=== PATIENT | female | born 1980 | race Two or more races ===

== ENCOUNTER 2024-12-02 16:27 | Emergency (ER) | payer MEDICAID, SELFPAY ==
[2024-12-02 16:30] VITALS: BMI 25.8
[2024-12-02 16:52] VITALS: BP 106/71; PULSE 58; RESP 16; TEMP 36.7; O2SAT 99
--- NOTE | 2024-12-02 17:06 | PD.EDRME ---
Rapid Medical Screening Exam [facility] Arrival date/time: 12/02/24 16:27 44-year-old female presents with acute onset of abdominal pain nausea vomiting and chills Chief Complaint: Abdominal Pain Vital signs: Vital Signs Temperature 98.1 F 12/02/24 16:52 Pulse Rate 58 L 12/02/24 16:52 Respiratory Rate 16 12/02/24 16:52 Blood Pressure 106/71 12/02/24 16:52 Pulse Oximetry (%) 99 12/02/24 16:52 Oxygen Delivery Method Room Air 12/02/24 16:52
[2024-12-02] MEDS: ACETAMINOPHEN 500 MG TABLET 1000 MG PO (17:21)
[2024-12-02] MEDS: ONDANSETRON ODT 4 MG TABRAP PO (17:21)
[2024-12-02 17:24] LABS: Basophils # (Auto) 0.1 Thou/mm3 (0.0-0.2); Basophils % (Auto) 0 % (0-2.5); Eosinophils # (Auto) 0.3 Thou/mm3 (0.0-0.5); Eosinophils % (Auto) 3 % (0-10); Hemoglobin 12.7 g/dL (12.0-16.0); Immature Granulocytes % (Auto) 0 % (0-0); Immature Granulocytes Auto 0.02 Thou/mm3 (0.00-0.00); Lymphocytes # (Auto) 1.5 Thou/mm3 (1.0-4.8); Lymphocytes % (Auto) 13 % (10-50); Mean Corpuscular HGB Conc 34.3 g/dl (31.0-37.0); Mean Corpuscular Hemoglobin 30.1 pg (25.0-35.0); Mean Corpuscular Volume 88 fL (80-100); Monocytes # (Auto) 0.5 Thou/mm3 (0.0-0.8); Monocytes % (Auto) 5 % (0-12); Neutrophils # (Auto) 9.3 Thou/mm3 (1.8-7.7); Neutrophils % (Auto) 79 % (37-80); Nucleated Red Blood Cell % 0 /100 WBC (0); Platelet Count 288 Thou/mm3 (140-440); RDW Standard Deviation 45.1 fL (36.4-46.3); Red Blood Count 4.22 Miln/mm3 (4.00-5.20); White Blood Count 11.8 Thou/mm3 (3.6-11.0)
[2024-12-02 17:43] LABS: Alanine Aminotransferase 25 U/L (10-49); Albumin, Serum 4.1 gm/dL (3.5-5.0); Albumin/Globulin Ratio 1.6 (1.2-2.2); Alkaline Phosphatase 73 U/L (46-116); Anion Gap 5 (7-16); Aspartate Amino Transferase 22 U/L (0-34); BUN/Creatinine Ratio 11 Ratio (12-20); Bilirubin,Total 0.4 mg/dL (0.3-1.2); Blood Urea Nitrogen 10 mg/dL (9-23); Calcium 9.2 mg/dL (8.3-10.6); Calcium (Corrected) 9.2 mg/dL (8.5-10.1); Carbon Dioxide 29.7 mMol/L (20.0-31.0); Chloride 108 mMol/L (98-107); Creatinine (Component) 0.9 mg/dL (0.6-1.3); Estimated Creatinine Clearance 80.5 mL/min (>60); Globulin 2.6 gm/dL (2.3-3.5); Glucose 76 mg/dL (74-106); Lipase 31 U/L (12-53); Osmolality,Calculated 282 (275-295); Potassium 3.5 mMol/L (3.4-5.1); Sodium 143 mMol/L (136-145); Total Protein 6.7 gm/dL (5.7-8.2); eGFR > 60 See Note
[2024-12-02 18:25] LABS: Collection Type, Urine Clean Catch
[2024-12-02 18:30] LABS: HCG Qualitative,Urine Negative
--- NOTE | 2024-12-02 18:30 | EDNOTE_ITS ---
ED General RME/HPI General Chief complaint: Abdominal Pain Stated complaint: N/V/D, SWEATS, BLACKED OUT, ABD PAIN X 1 HR Time Seen by Provider: 12/02/24 18:13 Arrival date/time: 12/02/24 16:27 CC: Nausea vomit diarrhea HPI onset abruptly approximate 30 minutes [place] food [place] another town, the patient then became lightheaded and diaphoretic. Currently the patient admits to having 1 round of very watery diarrhea, nausea has since resolved no actual vomiting. Patient is resting comfortably nontoxic- appearing complaining of bloated and tender abdomen. RME / HPI RME / HPI narrative: 12/02/24 16:27 44-year-old female presents with acute onset of abdominal pain nausea vomiting and chills Related Data Home Medications ?Medication ?Instructions ?Recorded ?Confirmed albuterol sulfate 90 mcg/actuation 2 puff inhalation Q ID PRN Wheezing 10/05/18 10/05/18 aerosol inhaler [id number] fumarate 18 1 tab-cap PO QAM 10/05/18 mg-FA 600 mcg-vit K 40 mcg capsule (Multi For Her) norethindrone 1 mg-ethinyl 1 tab PO QDAY 10/05/1809/07 estradiol 20 mcg (21)-iron 75 mg (7) tablet (Microgestin FE 09/24 (28)) Previous Rx's ?Medication ?Instructions ?Recorded dicyclomine 20 mg tablet 20 mg PO BID #10 tabs ondansetron 4 mg disintegrating 4 mg PO Q8H #10 tabs 0 12/02/24 tablet Allergies Allergy/AdvReac Type Severity Reaction Status Date / Time corn Allergy Gastrointestinal Verified 12/02/24 16:33 Upset egg Allergy Gastrointestinal Verified 12/02/24 16:33 Upset latex Allergy Hives Verified 12/02/24 16:33 peanut Allergy Gastrointestinal Verified 12/02/24 16:33 Upset shrimp Allergy Gastrointestinal Verified 12/02/24 16:33 Upset soy Allergy Gastrointestinal Verified 12/02/24 16:33 Upset wheat Allergy Gastrointestinal Verified 12/02/24 16:33 Upset cucumber AdvReac Gastrointestinal Verified 12/02/24 16:33 Upset hops AdvReac Gastrointestinal Verified 12/02/24 16:33 Upset Review of Systems Review of Systems Narrative Review of Systems: GEN: No fever, no chills, no weight loss EYES: No discharge, no visual changes, no pain HEENT: No ear pain, no congestion, no sore throat PULM: No shortness of breath, no cough, no congestion CV: No chest pain, no dyspnea on exertion, no palpitations GI: + nausea, + vomiting, + diarrhea, no pain, no constipation : No frequency, no urgency, no dysuria MUSC/SKEL: No joint pain, no back pain SKIN: No rash PSYCH: No hallucinations, no depression HEME/LYMPH: No easy bleeding or bruising tendencies NEURO: No weakness, no headache Past Medical History Past Medical History NEUROLOGIC: Negative Seizures CARDIAC: Negative Congestive Heart Failure RESPIRATORY: Negative Chronic Obstructive Pulmonary Disease (COPD) GENITOURINARY: Negative Renal Disease ENDOCRINE: Negative Diabetes Mellitus Type 1 or Diabetes Mellitus Type 2 OTHER HISTORY: Negative Blood Transfusions or Anesthesia Reactions Surgical History SURGICAL: Positive Section (x2) Social History SMOKING STATUS: Never smoker ED Exam Narrative Physical exam: [General: Obese not in any acute distress Head normocephalic HEENT: Within acceptable limits Neck is supple nontender Chest equal chest rise nontender to palpation Respiratory: Clear to auscultation no wheezes crackles or rubs CV: Rate rhythm is regular no murmurs rubs or clicks Abdomen is mildly distended, periumbilical tenderness with palpation no reflexive guarding rebound tenderness no upper abdominal tenderness. Back: No CVA tenderness no spinous process tenderness from cervical spine thoracic and lumbar spine Skin: Intact no petechiae rash induration ulceration or crepitus Extremities: Moving all extremity against resistance cap refill less than 2 seconds neurosensory intact Neuro: Awake alert oriented x3 Glascow coma 15 no focal deficits] Course Course Course Narrative: Reexamination of the patient at 1907, the patient is resting comfortably states she has some mild abdominal discomfort but no outright pain and no nausea. Laboratory results are showing no acute finding requires emergent or immediate intervention. This time patient be discharged home with ondansetron and is advised if there is a worsening of symptoms return the emergency room medially for further evaluation. Quality Measures none Orders Category Date Time Status Bedside Influenza A&B Antigen Test NOW Care 12/02/24 17:03 Completed CBC Stat Lab 12/02/24 17:15 Completed Comprehensive Metabolic Panel Stat Lab 12/02/24 17:15 Completed HCG Qualitative,Urine Stat Lab 12/02/24 18:15 Completed Lipase Stat Lab 12/02/24 17:15 Completed UA, C/S IF [Urinalysis, C/S if Indicated] Stat Lab 12/02/24 18:15 Completed Acetaminophen Tab [Tylenol ES Tab] Med 12/02/24 17:03 Discontinued 1,000 mg PO X1 ONE Ondansetron Odt [Zofran Odt] Med 12/02/24 17:03 Discontinued 4 mg PO X1 ONE Vital Signs Vital signs: Vital Signs Temperature 98.1 F 12/02/24 16:52 Pulse Rate 58 L 12/02/24 16:52 Respiratory Rate 16 12/02/24 16:52 Blood Pressure 106/71 12/02/24 16:52 Pulse Oximetry (%) 99 12/02/24 16:52 Oxygen Delivery Method Room Air 12/02/24 16:52 [facility] Patient data External records reviewed:: [facility] previous records Clinical information provided by:: patient Social determinants that could affect healthcare access:: none Patient has the following chronic illnesses:: None How is presenting disease/condition affected by chronic disease/condition?: u neffected by Evaluation data The following diagnostics were reviewed and interpreted by me:: lab results Lab and/or radiology exams considered but not ordered:: CBC shows mild leukocytosis 11.8 no anemia thrombocytopenia CMP shows a chloride of 108 gap of 5 no other electrolyte imbalances renal impairment transaminitis or T. bili elevation Interpretation Summary: Food poisoning Medications Medications considered but not ordered:: None Medication administrations:: Medication Administration History Discontinued Medications Acetaminophen (Acetaminophen 500 Mg Tablet) 1,000 mg PO X1 ONE Stop: 12/02/24 17:04 Last Admin: 12/02/24 17:21 Dose: 1,000 mg Documented By: CORAZON Ondansetron HCl (Ondansetron Odt 4 Mg Tabrap) 4 mg PO X1 ONE; Protocol Stop: 12/02/24 17:04 Last Admin: 12/02/24 17:21 Dose: 4 mg Documented By: CORAZON None Consultations Consultation(s) initiated? (list below): No Diagnosis Differential Diagnosis ED Complaint MDM: Viral syndrome Food poisoning gastritis Most likely diagnosis given after review of the tests above:: Nausea vomiting Admission Indicated Admission indicated?: not indicated Explain why admission is indicated or not indicated:: Stable for discharge Admission Request Was there a request for admission?: No Disposition Plan Disposition Plan: Discharge Discharge Attestation Discharge Attestation: The patient and all family members were given an opportunity to ask questions and understood the discharge instructions. Discharge instructions specifically effects, indications for sooner follow up or return to the emergency department, and the expected course of current diagnosis. Patient condition: Stable Medical Decision Making Differential Diagnosis Differential Diagnosis: Viral syndrome Food poisoning gastritis Lab Data 12/02/24 17:15 12/02/24 17:15 Labs: Lab Results 12/02/24 12/02/24 Range/Units 17:15 18:15 WBC 11.8 H (3.6-11.0) Thou/mm3 RBC 4.22 (4.00-5.20) Miln/mm3 Hgb 12.7 (12.0-16.0) g/dL Hct 37.0 (36.0-46.0) % MCV 88 (80-100) fL MCH 30.1 (25.0-35.0) pg MCHC 34.3 (31.0-37.0) g/dl RDW Std Deviation 45.1 (36.4-46.3) fL Plt Count 288 (140-440) Thou/mm3 Neut % (Auto) 79 (37-80) % Lymph % (Auto) 13 (10-50) % [place] % (Auto) 5 (0-12) % Eos % (Auto) 3 (0-10) % Baso % (Auto) 0 (0-2.5) % Neut # (Auto) 9.3 H (1.8-7.7) Thou/mm3 Lymph # (Auto) 1.5 (1.0-4.8) Thou/mm3 [place] # (Auto) 0.5 (0.0-0.8) Thou/mm3 Eos # (Auto) 0.3 (0.0-0.5) Thou/mm3 Baso # (Auto) 0.1 (0.0-0.2) Thou/mm3 Immature Gran # (Auto) 0.02 H (0.00-0.00) Thou/mm3 Absolute Nucleated RBC 0.00 (0.00-0.00) Thou/mm3 Immature Gran % 0 (0-0) % Nucleated RBC % 0 (0) /100 WBC Sodium 143 (136-145) mMol/L Potassium 3.5 (3.4-5.1) mMol/L Chloride 108 H (98-107) mMol/L Carbon Dioxide 29.7 (20.0-31.0) mMol/L Anion Gap 5 L (7-16) BUN 10 (9-23) mg/dL Creatinine 0.9 (0.6-1.3) mg/dL Estim Creat Clear Calc 80.5 (>60) mL/min eGFR > 60 (60 - ) See Note BUN/Creatinine Ratio 11 L (12-20) Ratio Glucose 76 (74-106) mg/dL Calculated Osmolality 282 (275-295) Calcium 9.2 (8.3-10.6) mg/dL Corrected Calcium 9.2 (8.5-10.1) mg/dL Total Bilirubin 0.4 (0.3-1.2) mg/dL AST 22 (0-34) U/L ALT 25 (10-49) U/L Alkaline Phosphatase 73 (46-116) U/L Total Protein 6.7 (5.7-8.2) gm/dL Albumin 4.1 (3.5-5.0) gm/dL Globulin 2.6 (2.3-3.5) gm/dL Albumin/Globulin Ratio 1.6 (1.2-2.2) Lipase 31 (12-53) U/L Ur Collection Type Clean Catch Urine Color Yellow (Lt Yel-Yel) Urine Clarity Clear (Clear/Hazy) Urine pH 6.5 (5.0-7.0) Ur Specific [place] 1.026 (1.001-1.035) Urine Protein Negative (Neg - Trace) Urine Glucose (UA) Negative (Negative) Urine Ketones Negative (Negative) Urine Blood 1+ A (Negative) Urine Nitrite Negative (Negative) Urine Bilirubin Negative (Negative) Urine Urobilinogen (Auto) 3.0 (0.0-1.0) mg/dL Ur Leukocyte Esterase Negative (Negative) Urine RBC 5 H (0-3) /hpf Urine WBC 2 (0-5) /hpf Ur Squamous Epith Cells 1 (0-5) /hpf Urine Bacteria None (None) Ur Culture Indicated? Not Indicated Urine HCG, Qual Negative Discharge Plan Plan Patient Disposition: HOME (Self Care) Patient condition on transfer: Stable Prescriptions/Referrals Prescriptions/Med Rec: New ondansetron 4 mg tablet,disintegrating 4 mg PO Q8H Qty: 10 0RF dicyclomine 20 mg tablet 20 mg PO BID Qty: 10 0RF No Action norethindrone-e.estradiol-iron [Microgestin FE 09/24 (28)] 1 mg-20 mcg (21)/75 mg (7) Tablet 1 tab PO QDAY albuterol sulfate 90 mcg/actuation Hfa Aerosol Inhaler 2 puff INHALATION QID PRN (Reason: Wheezing) [id number]-FA-vit K [Multi For Her] 18 mg iron-600 mcg-40 mcg Capsule 1 tab-cap PO QAM Referrals: No Primary/Family,Physician [Primary Care Provider] - In 1 week Chase Fishman MD [Physician] - In 1 week Problem List Clinical Impression: Nausea vomiting and diarrhea Patient/Caregiver Discharge Instructions Education Materials: Self-Care for Vomiting and Diarrhea, ED Vomiting and Diarrhea ... Additional Instructions: I suspect this is food related however can rest drink plenty of fluids and a bland diet for the next 2 to 3 days if there is worsening of symptoms in spite of the medication provided return the emergency room for immediately evaluation. Print Language: Divehi Stand Alone Forms: [employer]udelia Award Info., Patient Portal Info Letter PA/REMI Supervising Physician MAIA/REMI Supervising Physician: Rashad Hanson ENP
[2024-12-02 18:33] LABS: Bilirubin,Urine Negative (Negative); Blood,Urine 1+ (Negative); Clarity,Urine Clear (Clear/Hazy); Color,Urine Yellow (Lt Yel-Yel); Culture Indicated,Urine Not Indicated; Glucose, Urine Negative (Negative); Ketones,Urine Negative (Negative); Leukocyte Esterase,Urine Negative (Negative); Nitrite,Urine Negative (Negative); PH,Urine 6.5 (5.0-7.0); Protein,Urine Negative (Neg - Trace); RBC,Urine 5 /hpf (0-3); Specific Gravity,Urine 1.026 (1.001-1.035); Squamous Epithelial Cell,Urine 1 /hpf (0-5); WBC,Urine 2 /hpf (0-5)
[2024-12-02 19:01] VITALS: BP 114/74; PULSE 62; RESP 19; TEMP 36.4; O2SAT 100
[2024-12-02 19:04] VITALS: BP 114/74; PULSE 68; RESP 16; TEMP 36.7; O2SAT 100
== END 2024-12-02 19:19 | disposition home or self-care (01) ==
PROVIDERS: Nurse Practitioner Primary Care; Emergency Provider Emergency Medicine
DX: R11.2 Nausea with vomiting, unspecified (principal); R19.7 Diarrhea, unspecified; D72.829 Elevated white blood cell count, unspecified
CPT/HCPCS: 36415; 80053; 81001; 81025; 83690; 85025; 87400; 99283; Q0162; A9270